=== PATIENT | male | born 1940 | race Caucasian/White ===

== ENCOUNTER 2016-11-15 01:30 | Day surgery (SDC) | payer MEDICARE ==
[~2016-11-15] VITALS: Ht 162.6 cm; Wt 94.0 kg
[~2016-11-15 01:30] MED LIST: BIOT1CAP3 PO; CLOB15CR3 TOP; COZ50 PO; KEN25CR EXT; UBID30CA12 PO; VANAQ
[2016-11-15] MEDS ORDERED: Ketamine 10 mg/mL 20 mL Inj ONE (01:31)
[2016-11-15] MEDS ORDERED: fentaNYL-PF 50 mCg/mL 2 mL Inj ONE (01:31)
[2016-11-15] MEDS ORDERED: Propofol 10,000 mCg/mL 20 mL Inj ONE (01:31)
[2016-11-15 07:31] VITALS: BP 126/97; PULSE 96; RESP 14; O2SAT 96
[2016-11-15] MEDS ORDERED: LOSA50TA37 PO (07:34)
--- NOTE | 2016-11-15 07:53 | PCM.HPANE ---
Patient Data Date of Service: November 15, 2016 Surgeon Admitting Provider: Attending Provider:Mode Shane MD Primary Care Physician:Soham Deleon MD Other Provider:Montez Khanna Anesthesia Reason for Visit Abnormal Ct Scan Ht/WT & BMI Height (Feet): 5 Height (Inches): 4 Weight (Kilograms): 94 Body Mass Index 35.00 Allergies Coded Allergies: fosinopril (Verified Allergy, Unknown, 11/14/16) iodine (Verified Allergy, Unknown, 11/14/16) colchicine (Verified Adverse Reaction, Mild, 11/14/16) diarrhea ciprofloxacin (Verified Adverse Reaction, Unknown, rash, 11/14/16) Past Anesthesia History Anesthesia History: Denies:: Abnormal Airway, Anesthesia Reactions, Difficult Intubation, Fam Anesthesia Reaction, Fam Malignant Hypertherm, Malignant Hyperthermia Diabetes History Hx Diabetes?: No MRSA MRSA: No Medications Home Meds Incl Beta Giacomo: No Reported Medications Losartan Potassium 50 Mg [id number] Mg PO 11/15/16 Triamcinolone Acet (Triamcinolone Acetonide Cream)1 Applic/0.25 Gm Cr1 Applic EXT BID #60 GM Ref 0 11/14/16 Ubidecarenone (Coq-10)30 Mg Capsule1-2 Tablet PO DAILY 11/14/16 Clobetasol Propionate/Emoll (Clobetasol Emollient 0.05% Crm)15 Gm Cream..g.1 Appl TOP BID #1 TUBE 11/14/16 Biotin 1 Mg Capsule1 Mg PO DAILY 11/14/16 Beclomethasone Dip (Beconase Aq)25 Ml Aero25 Ml NA BID 11/14/16 Discontinued Reported Medications Losartan-Expunged Drug, Do Not Renew! 50 Mg [id number] Mg PO DAILY #30 TAB 09/29/13 History History of ENT Problems?: No HEENT History: Positive for:: Dysphagia Hearing Problem Denies:: Abnormal Airway Difficult Intubation Denture Type: None Teeth Condition: Within Normal Limits Hx of Heart Problems?: Yes Cardiovascular History: Positive for:: Chest Pain Hypertension Denies:: AICD Atrial Fibrillation Pacemaker Valvular Heart Disease Hx of Respiratory Problem?: Yes Respiratory History: Denies:: Use of C-PAP Machine Other Resp Pertinent History: HISTORU OF SPONTANEOUS PNEUMO IN 1971 Other History/Comment wilma Hx Neurologic Problems?: No Neurological History: Denies:: CVA Hx of GI Problems?: Yes Hx of Problems?: No Hx Musculoskeletal Problems?: Yes Musculoskeletal History: Positive for:: Osteoarthritis Denies:: Fibromyalgia Joint Replacement Psycho Social History: Denies:: Anxiety Hx Depression Hx Surgeries?: Yes (inguinal hernia, RT FOOT, L KNEE, CARPAL TUNNEL L, ORAL IMPLANTS, CAT) Hx Any Other Health Problems?: Yes Hx Diabetes: No Hx Alcohol Use: Yes (occasional, "I'M ALLERGIC")Hx Substance Use: NoHave You Smoked inLast 12 mo: No Stop/Bang Treated for Sleep Apnea?: Yes Do You Have a CPAP Machine?: Yes WILMA Category 2: Yes WILMA Category 4 OutPt Procedure: Yes Risk Assessment Category Category 1A: Patient has history of documented sleep apnea, and HAS NOT received any narcotic, sedative or anesthesia administration during this stay. Category 1B: Patient has history of documented sleep apnea, and HAS received any narcotic , sedative or anesthesia administration during this stay Category 2: Patient has SUSPECTED Obstructive Sleep Apnea, and HAS received any narcotic , sedative or anesthesia administration during this stay. Category 3: Patient has SUSPECTED Obstructive Sleep Apnea and HAS NOT received narcotic, sedative or anesthesia administration during this stay. Category 4: Outpatient in Procedural Areas with known sleep apnea or who screen positive for High Risk via the STOP/BANG questionnaire. Exam Exam Vital Signs Vital Signs Date Time Temp Pulse Resp B/P Pulse Ox O2 Delivery O2 Flow Rate FiO2 11/15/16 07:31 36.4 96 14 126/97 96 Room Air General Appearance: Alert, Oriented X3, Cooperative, No Acute Distress HEENT/AIRWAY: MP 2 Lungs: Clear to Auscultation, Normal Air Movement Heart: Exam Unremarkable, Regular Rate/Rhythm, No Murmurs/Rubs/Gallops Plan Impression Patient chart reviewed, patient interviewed and anesthestic plan with risks, benefits, and alternatives discussed, and informed consent obtained. NPO per Anesth. Guidelines: Yes ASA Physical Status: ASA3 Severe Disease Anesthetic Plan: MAC Bene/Risks/Altern/Consents: Yes HP Complete Prior to Induction: Yes Ok King MD November 15, 2016 07:53
[2016-11-15] MEDS: Lactated Ringer's 1,000 ML IV ONE ×2 (08:09→08:32)
--- NOTE | 2016-11-15 08:30 | PCM.ENDEGD ---
EGD Date of Service: November 15, 2016 Physician Mode Shane MD Pre Procedure Diagnosis: Abnormal CT Post Procedure Dx & Findings: Lungs segment Reardon's and gastric erosion Procedure Esophagogastroduodenoscopy PROCEDURE IN DETAIL: After proper sedation, Olympus video endoscope was inserted into patient's mouth and esophagus was successfully intubated. Scope introduced esophagus. Esophagus showed normal shiny whitish mucosa consistent with squamous cell component. From 31 cm from the incisors, salmon-colored mucosa noted up to 37 cm. In the Reardon's esophagus, there was evidence of small clean-based ulcers no more than 3-1 mm in size. No banding use. There was no suspicious mucosa for high-grade dysplasia nodule or mass. Biopsies were obtained per protocol. 4 quadrant biopsies every 2 cm. In a separate file, we placed the ulcer biopsies. Scope further advanced to the stomach. Stomach showed normal shiny mucosa with normal appearing rugae folds without any ulcer mass erosion. However in the prepylorus, there was a single erosion which was biopsied. Cardia fundus body antrum pylorus were all visualized. Retroflexion was done. Stomach was easily inflated and deflatable using air. Scope further events to the distal duodenum. Duodenum revealed normal villous structures with normal appearing folds without any mass ulcer erosion. 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 Biopsies obtained including the ulcers. Gastric erosion Recommendation Start PPI. Presedation Assessment Risks and Benefits Informed consent was obtained from the patient after all risks and benefits including but not limited to drug reaction, infection, pain, bleeding, perforation, as well as alternatives were discussed. Patient monitoring Continuous pulse oximetry, cardiac monitoring, blood pressure monitoring, IV access, and oxygen at 2L per nasal cannula. Complications There were no periprocedural complications identified. Post Procedure Plan Post Procedure Recommendations 1. Restrict activities today. 2. Resume normal activities in the morning. 3. Resume medications. 4. GERD behavioral modification: - Avoid fatty, acidic, spicy, large meals - Do not lie down after meals - Do not eat or drink anything for at least 2 1/2 hours before going to bed at night - Discontinue tobacco and alcohol - Decrease or avoid caffeine - Avoid chocolate and mints - Decrease weight - Avoid aspirin and non steroidal anti-inflammatory agents (NSAID) such as Aleve, Advil, Mobic, Naproxen, Ibuprofen, etc 5. Add proton pump inhibitor. Take 30 minutes before 1st meal of the day. 6. Patient informed of normal post procedure side effects as bloating, drowsiness, blood streaking in the stool 7. If gastric biopsy reveal H.pylori, continue with appropriate treatment 8. If small bowel biopsy reveals celiac, continue with appropriate treatment 9. Please don't hesitate to call me with any questions Mode Shane MD November 15, 2016 08:30
[2016-11-15] MEDS ORDERED: Lactated Ringer's 1,000 ML IV SCH (08:49)
[2016-11-15] MEDS ORDERED: Lactated Ringer's 500 ML IV PRN (08:49)
[2016-11-15] MEDS ORDERED: MetoCLOpramide 5 mg/mL 2 mL Inj IVPUSH PRN (08:50)
[2016-11-15] MEDS ORDERED: Ondansetron 2 mg/mL 2 mL Inj IVPUSH PRN (08:50)
[2016-11-15] MEDS ORDERED: Atropine 0.4 mg/mL Inj IVPUSH PRN (08:50)
[2016-11-15 08:51] VITALS: BP 121/83; RESP 16; O2SAT 96
--- NOTE | 2016-11-15 08:51 | PCM.ANEP1 ---
Post Anesthesia Phase 1 PACU Phase 1 Assessment Date of Service: November 15, 2016 Vital Signs 36.5 121/83 88 18 94% FM Anesthetic Administered: MAC Level of Alertness: Sleepy, easy to arouse BIANCHI's with Equal Strength: Yes Pain: No Nausea or Vomiting: No Cardiovascular Function and Hy: Yes Oxygen Delivery: Simple Mask Lungs: Clear to Auscultation, Normal Air Movement Complications: No Follow up Care: No Patient Instructions Provided: Yes Ok King MD November 15, 2016 08:51
--- NOTE | 2016-11-15 08:52 | PCM.ENDCOL ---
Colonoscopy Date of Service: November 15, 2016 Physician Mode Shane MD Indication for Procedure Screening Pre Procedure Diagnosis: Screening Post Procedure Dx & Findings: Polyp hemorrhoids diverticuli Procedure Colonoscopy PROCEDURE IN DETAIL: Prep adequate Withdrawal time 11 minutes After unremarkable rectal examination the Olympus video colonoscope was inserted patient's anal canal and was advanced to cecum. Landmarks were identified including the ileocecal valve and appendiceal orifice. Scope was withdrawn systematically. Visualized colonic mucosa showed healthy shiny mucosa with normal healthy-appearing vasculature. In the ascending colon there was a 3 mm polyp which was completed and cold snare. In the sigmoid colon there was a 2 mm polyp which was removed using cold snare. Patient had diverticuli scattered all the way into the cecum. Sizes were small to medium size but mostly in the sigmoid colon. In the rectum retroflexion was done which showed hemorrhoids. Anal canal was inspected carefully on the way out and hemorrhoids noted. Impression Polyps 2 status post complete removal Diverticuli Hemorrhoids Recommendation Repeat colonoscopy in 5 years Diverticular diet Presedation Assessment Risks and Benefits Informed consent was obtained from the patient after all risks and benefits including but not limited to drug reaction, infection, pain, bleeding, perforation, as well as alternatives were discussed. Patient monitoring Continuous pulse oximetry, cardiac monitoring, blood pressure monitoring, IV access, and oxygen at 2L per nasal cannula. Complications There were no periprocedural complications identified. Post Procedure Plan Post Procedure Recommendations 1. Restrict activities today. 2. Resume normal activities in the morning. 3. Resume medications. 4. Patient informed of normal post procedure side effects as bloating, drowsiness, blood streaking in the stool. 5. average risk CRCS. If colon polyps come back as: -Hyperplastic- can repeat colonoscopy in 10 years -Tubular adenoma- repeat colonoscopy in 5 years -Tubulovillous/villous adenoma- repeat colonoscopy in 3 years -If any dysplasia- return to clinic as soon as possible 6. Please don't hesitate to call me with any questions. Mode Shane MD November 15, 2016 08:52
[2016-11-15 09:01] VITALS: BP 121/83; PULSE 88; RESP 16; O2SAT 96
[2016-11-15 09:11] VITALS: BP 140/79; PULSE 79; RESP 16; O2SAT 95
--- NOTE | 2016-11-19 15:56 | PATH ---
SURGICAL PATHOLOGY Attending Physician:Mode Shane M.D. CASE STATUS: Signed Out PATIENT NAME: MARY KATE DE LA TORRE PID: [id number] : 1940 DATE COLLECTED:11/15/2016 16:52 SPECIMEN: 1: Gastric, Biopsy 2: Esophagus, Biopsy 3: Esophagus, Biopsy 4: Colon, Biopsy 5: Colon, Biopsy CLINICAL HISTORY: 1. GASTRIC BIOPSY 2. DISTAL ESOPHAGUS BIOPSY 3. ESOPHAGUS ULCER BIOPSY 4. ASCENDING COLON POLYP 5. SIGMOID COLON POLYP FINAL DIAGNOSIS: A. Stomach, Biopsy: Antral-type mucosa with no diagnostic abnormality. Negative for Helicobacter organisms. Negative for intestinal metaplasia. Negative for dysplasia or malignancy. B. 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 Negative for dysplasia or malignancy. C. 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 No obvious fungal organisms identified on H&E stain. Negative for dysplasia or malignancy. D. Ascending Colon, Polyp, Biopsy: Tubular adenoma. E. Sigmoid Colon, Polyp, Biopsy: Hyperplastic polyp. ICD10: D12.2 K22.70 GROSS DESCRIPTION: The specimen is received in five formalin filled containers labeled with the patient's name. 1). The specimen is sublabeled "gastric" and consists of a 0.3 x 0.3 x 0.2 CM portion of tissue which is entirely submitted in cassette 1A. 2). The specimen is sublabeled "distal esophagus" and consists of multiple portions of tissue which aggregate to 0.5 x 0.4 x 0.3 CM. The specimen is entirely submitted in cassette 2A. 3). The specimen is sublabeled "esophagus ulcer" and consists of 2 portions of tissue which aggregate to 0.3 x 0.3 x 0.2 CM. The specimen is entirely submitted in cassette 3A. 4). The specimen is sublabeled "ascending colon polyp" and consists of 2 portions of tissue which aggregate to 0.5 x 0.4 x 0.3 CM. The specimen is entirely submitted in cassette 4A. 5). The specimen is sublabeled "sigmoid colon polyp" and consists of a 0.3 x 0.3 x 0.2 CM portion of tissue which is entirely submitted in cassette 5A. 11/15/2016 [facility] ICD-9 CODES: CPT CODES: 1: 32139 2: 48181 3: 85393 4: 73821 5: 07926 Electronically Signed Out Alicia Corbett MD [facility] [address], [place] [address] Technical component performed at [facility], [address], [place], [address]
== END 2016-11-15 23:59 | disposition home or self-care (01) ==
LOC: END 01:30
PROVIDERS: ATTEND Internal Medicine
DX: Z12.11 Encounter for screening for malignant neoplasm of colon (principal); Z86.010 Personal history of colon polyps; D12.2 Benign neoplasm of ascending colon; K63.5 Polyp of colon; K57.30 Diverticulosis of large intestine without perforation or abscess without bleeding; K64.9 Unspecified hemorrhoids; K22.70 Barrett's esophagus without dysplasia; R93.3 Abnormal findings on diagnostic imaging of other parts of digestive tract; I10 Essential (primary) hypertension; G47.33 Obstructive sleep apnea (adult) (pediatric); J44.9 Chronic obstructive pulmonary disease, unspecified; M19.90 Unspecified osteoarthritis, unspecified site
CPT/HCPCS: 43239; 45385; J3010; J7120